=== PATIENT | male | born 1985 ===

== ENCOUNTER → 2024-03-11 17:31 | Outpatient (REF) | payer BC, SELFPAY | LOC: HWRAD 17:31 | PROVIDERS: ATTENDING PHYSICIAN Physician Assistant Medical; FAMILY PHYSICIAN Physician Assistant | DX: M25.531 Pain in right wrist (principal) | CPT/HCPCS: 73110 ==

== ENCOUNTER → 2025-02-11 14:13 | Outpatient (REF) | payer BC, SELFPAY | LOC: RAD 14:13 | PROVIDERS: ATTENDING PHYSICIAN Physician Assistant; FAMILY PHYSICIAN Physician Assistant | DX: T15.00XA Foreign body in cornea, unspecified eye, initial encounter (principal) | CPT/HCPCS: 70030 ==

== ENCOUNTER 2025-04-22 06:21 | Day surgery (SDC) | payer BC, SELFPAY ==
[2025-04-14 11:35] LABS: Hematocrit 43.7 % (39.0-52.0); Hemoglobin 14.6 g/dL (13.0-18.0); Mean Corp Hgb Conc. 33.4 g/dL (33.0-37.0); Mean Corpuscular Volume 87.4 fL (80.0-94.0); Platelet Count 236 10^3/uL (130-400); Red Cell Dist. Width 12.8 % (11.5-14.5)
[2025-04-14 12:19] LABS: ALT (SGPT) 17 U/L (0-50); AST (SGOT) 18 U/L (17-59); Albumin 4.5 g/dl (3.5-5.0); Alkaline Phosphatase 64 U/L (38-126); Blood Urea Nitrogen 17 mg/dl (9-20); Calcium 9.2 mg/dl (8.4-10.2); Carbon Dioxide 27 mmol/L (22-30); Chloride 108 mmol/L (98-107); Glucose 111 mg/dl (70-99); Potassium 4.2 mmol/L (3.5-5.1); Sodium 141 mmol/L (135-145); Total Protein 7.1 g/dl (6.3-8.2); eGFR > 60.00
[2025-04-14 14:16] VITALS: BMI 30.7
[2025-04-14 14:52] VITALS: BMI 30.7
[2025-04-22] VITALS (11 sets, daily range): BP systolic 105–137; BP diastolic 67–86; BMI 30.7
[2025-04-22] MEDS: TYLENOL 1000 MG PO (09:47)
[2025-04-22] MEDS: METHOCARBAMOL 1500 MG PO (09:47)
[2025-04-22] MEDS: LYRICA 150 MG PO (09:47)
[2025-04-22] MEDS: CELEBREX 200 MG PO (09:47)
[2025-04-22] MEDS: NORMOSOL-R/PLASMALYTE-A 1000 IV (09:48)
[2025-04-22] MEDS: MORPHINE SULFATE 2 MG IV ×2 (13:25→13:40)
[2025-04-22] MEDS: ROXICODONE 5 MG PO (14:45)
== END 2025-04-22 15:15 | disposition home or self-care (01) ==
LOC: SDS 06:21
PROVIDERS: ATTENDING PHYSICIAN Orthopaedic Surgery Orthopaedic Surgery of the Spine; FAMILY PHYSICIAN Physician Assistant
DX: M48.02 Spinal stenosis, cervical region (principal); M50.222 Other cervical disc displacement at C5-C6 level
CPT/HCPCS: 22554; 22845; 22853; 20930; 36415; 72020; 80053; 85027; 87070; C1713